=== PATIENT | female | born 1955 | race Caucasian/White ===

== ENCOUNTER 2016-09-13 15:53 | Inpatient (IN) | payer OTHER ==
[~2016-09-13] VITALS: Ht 165.1 cm; Wt 135.2 kg
[2016-09-14 04:45] LABS: RED BLOOD COUNT 4.03 M/UL (4.00-5.10); WHITE BLOOD COUNT 10.8 K/UL (4.5-11.0)
[2016-09-14 05:26] LABS: BUN/CREATININE RATIO 23 (0-10)
[2016-09-15 04:21] LABS: HEMOGLOBIN 10.9 gm/dl (12.3-15.3); RED BLOOD COUNT 3.9 M/UL (4.00-5.10)
[2016-09-15 04:26] LABS: WHITE BLOOD COUNT 13.6 K/UL (4.5-11.0)
[2016-09-15 04:36] LABS: BUN/CREATININE RATIO 20 (0-10)
[2016-09-15] MEDS ORDERED: COZAAR50 MG PO (16:21)
[2016-09-15] MEDS ORDERED: NORCO 7.5-3251 EACH PO (16:22)
[2016-09-15] MEDS ORDERED: CLARITIN10 MG PO (16:23)
[2016-09-15] MEDS ORDERED: ZOLOFT50 MG PO (16:24)
== END 2016-09-15 17:06 | disposition home or self-care (01) | DRG 511 ==
LOC: M/S 18:34
PROVIDERS: Orthopaedic Surgery; Physician Assistant; ADMIT Internal Medicine
PROC: 0PSK04Z Reposition Right Ulna with Internal Fixation Device, Open Approach (ICD-10-PCS; 2016-09-14)
PROC: 0PSJ04Z Reposition Left Radius with Internal Fixation Device, Open Approach (ICD-10-PCS; principal; 2016-09-14 13:00)
DX: S52.502A Unspecified fracture of the lower end of left radius, initial encounter for closed fracture (principal); Z68.42 Body mass index [BMI] 45.0-49.9, adult; S52.602A Unspecified fracture of lower end of left ulna, initial encounter for closed fracture; S00.12XA Contusion of left eyelid and periocular area, initial encounter; I10 Essential (primary) hypertension; F32.9 Major depressive disorder, single episode, unspecified; E11.9 Type 2 diabetes mellitus without complications; K21.9 Gastro-esophageal reflux disease without esophagitis; M79.7 Fibromyalgia; W10.9XXA Fall (on) (from) unspecified stairs and steps, initial encounter; E66.01 Morbid (severe) obesity due to excess calories; Z90.710 Acquired absence of both cervix and uterus; Z88.5 Allergy status to narcotic agent; Z88.6 Allergy status to analgesic agent; Z88.1 Allergy status to other antibiotic agents
CPT/HCPCS: 36415; 71010; 73110; 76000; 80048; 82962; 83735; 85027; 85610; 85730; C1713; J0690; J2250; J2270; J2795; J3010; J7030; Q0162